=== PATIENT | female | born 1985 | race Caucasian/White ===

== ENCOUNTER 2021-02-15 22:59 | Emergency (ER) | payer OTHER ==
[2021-02-15 23:15] VITALS: BP 113/76; PULSE 69; TEMP 97.9; BMI 35.9
== END 2021-02-16 05:30 | disposition short-term general hospital (02) ==
LOC: JER 22:59
DX: M65.841 Other synovitis and tenosynovitis, right hand (principal)
CPT/HCPCS: 73130-TC-RT-FY; 99284-25

== ENCOUNTER 2023-04-12 18:18 | Emergency (ER) | payer OTHER ==
[2023-04-12 18:26] VITALS: BP 133/80; PULSE 78; RESP 18; TEMP 98.4; BMI 36.6
[2023-04-12] MEDS ORDERED: ACETAMINOPHEN 500 MG TABLET (FP) PO ONE (19:03)
[2023-04-12] MEDS ORDERED: ACETAMINOPHEN 325 MG TABLET (FP) ONE (20:08)
== END 2023-04-12 20:48 | disposition home or self-care (01) ==
LOC: JER 18:18
DX: R20.0 Anesthesia of skin (principal); R20.2 Paresthesia of skin; R51.9 Headache, unspecified; R00.2 Palpitations
CPT/HCPCS: 93005; 93010; 99283-25